=== PATIENT | female | born 1970 | race African-American/Black ===

== ENCOUNTER 2021-01-19 15:10 | Emergency (ER) | payer MEDICAID ==
[~2021-01-19 15:10] MED LIST: IBUP-2028 PO
== END 2021-01-19 16:28 | disposition home or self-care (01) ==
LOC: ER 15:10
DX: Z53.21 Procedure and treatment not carried out due to patient leaving prior to being seen by health care provider (principal)

== ENCOUNTER 2021-01-19 16:50 | Emergency (ER) | payer MEDICAID | END 2021-01-19 19:00 | disposition left against medical advice (07) | LOC: ER 16:50 | DX: Z53.21 Procedure and treatment not carried out due to patient leaving prior to being seen by health care provider (principal) ==

== ENCOUNTER 2021-01-19 16:52 | Emergency (ER) | payer MEDICAID ==
[~2021-01-19] VITALS: Ht 165.1 cm; Wt 68.0 kg
[2021-01-19 17:24] VITALS: BP 137/93
== END 2021-01-19 18:25 | disposition home or self-care (01) ==
LOC: ER 16:52
DX: S00.86XA Insect bite (nonvenomous) of other part of head, initial encounter (principal); S50.861A Insect bite (nonvenomous) of right forearm, initial encounter; S50.862A Insect bite (nonvenomous) of left forearm, initial encounter; W57.XXXA Bitten or stung by nonvenomous insect and other nonvenomous arthropods, initial encounter; Y93.9 Activity, unspecified; Y92.9 Unspecified place or not applicable
CPT/HCPCS: 99281